=== PATIENT | female | born 1970 | race African-American/Black ===

== ENCOUNTER 2018-04-23 01:33 | Emergency (ER) | payer MEDICARE ==
[~2018-04-23] VITALS: Ht 172.7 cm; Wt 100.0 kg
[2018-04-23 03:03] VITALS: BP 105/63
== END 2018-04-23 03:04 | disposition home or self-care (01) ==
LOC: ER 01:33
DX: M54.42 Lumbago with sciatica, left side (principal); Z76.0 Encounter for issue of repeat prescription; M79.652 Pain in left thigh; F12.90 Cannabis use, unspecified, uncomplicated; Y93.E1 Activity, personal bathing and showering; W18.2XXA Fall in (into) shower or empty bathtub, initial encounter; Y92.091 Bathroom in other non-institutional residence as the place of occurrence of the external cause
CPT/HCPCS: 99283